=== PATIENT | male | born 1980 | race Caucasian/White ===

== ENCOUNTER 2020-03-22 15:48 | Emergency (ER) | payer OTHER ==
[~2020-03-22] VITALS: Ht 190.5 cm; Wt 90.7 kg
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
[2020-03-22 16:35] VITALS: BP 135/79
[2020-03-22] MEDS ORDERED: Ketorolac 30mg Inj IM ONE (16:45)
--- NOTE | 2020-03-22 17:09 | Diagnostic Imaging Report ---
Indication: Shortness of breath Technique: One view of the chest Comparison: none Findings: Lungs and pleural spaces are clear. Heart size is normal. Impression: No acute process
--- NOTE | 2020-03-22 17:10 | NUR ---
ED Nurse Note: pt's bilat knees cleaned and dressed, L knee placed in knee immobilizer, pt tolerated well
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
--- NOTE | 2020-03-22 17:12 | Diagnostic Imaging Report ---
Indication: Left knee pain Technique: 3 views of the with knee Comparison: None Findings: There is prepatellar soft tissue swelling. No acute fracture. No dislocation. The joint spaces are preserved. Impression: No acute process Prepatellar soft tissue swelling. Correlate with clinical findings
[2020-03-22] MEDS ORDERED: Bactrim-DS 1 tab ORAL ONE (17:15)
[2020-03-22] MEDS ORDERED: IBU800 MG PO (17:15)
[2020-03-22] MEDS ORDERED: BACTRIM DS TAB1 EAC1 ORAL (17:15)
[2020-03-22] MEDS ORDERED: CEPHALEXIN500 MG ORAL (17:15)
[2020-03-22] MEDS ORDERED: ROBAXIN-500MG ORAL (17:15)
[2020-03-22] MEDS ORDERED: Cephalexin 500mg cap ORAL ONE (17:15)
[2020-03-22] MEDS ORDERED: Bacitracin Oint UD TOPIC ONE (17:15)
[2020-03-22 17:25] VITALS: BP 135/79
--- NOTE | 2020-03-22 17:58 | NUR ---
ER DISCHARGE NOTE: Patient is cleared to be discharged per ERMD, pt is aox4, on room air, with stable vital signs. pt was given dc and prescription instructions, pt was able to verbalize understanding, pt id band removed without complications. pt is able to ambulate with steady gait. pt took all belongings.
== END 2020-03-22 17:58 | disposition home or self-care (01) ==
LOC: EMR 16:00
DX: L08.89 Other specified local infections of the skin and subcutaneous tissue (principal); S80.212A Abrasion, left knee, initial encounter; M76.9 Unspecified enthesopathy, lower limb, excluding foot; W17.89XA Other fall from one level to another, initial encounter; Y93.I9 Activity, other involving external motion; Y92.9 Unspecified place or not applicable
CPT/HCPCS: 71045; 73562; 96372; J1885; Z7502; 99283